=== PATIENT | male | born 1995 ===

== ENCOUNTER 2019-02-05 14:25 | Outpatient (CLI) | payer OTHER ==
[~2019-02-05] VITALS: Ht 170.2 cm; Wt 106.6 kg
== END 2019-02-05 14:50 | disposition home or self-care (01) ==
LOC: OFIC 805 14:25
DX: H60.8X2 Other otitis externa, left ear (principal); H90.3 Sensorineural hearing loss, bilateral; H61.23 Impacted cerumen, bilateral